=== PATIENT | female | born 1990 | race African-American/Black ===

== ENCOUNTER 2016-10-30 11:30 | Emergency (ER) | payer MEDICAID ==
[~2016-10-30] VITALS: Ht 170.2 cm; Wt 60.0 kg
[~2016-10-30 11:30] MED LIST: KEPP250 PO; LAM25 PO; PHEN30TA42 PO
[2016-10-30 13:12] LABS: BASOPHILS % 0.4 % (0.0-2.0); EOSINOPHILS % 0.9 % (0.0-5.0); HEMATOCRIT. 38.4 % (36.0-48.0); HEMOGLOBIN. 13.3 g/dL (12.0-16.0); LYMPHOCYTES % 36.2 % (20.0-50.0); MEAN CORPUSCULAR HEMOGLOBIN 31.6 pg (28.0-32.0); MEAN CORPUSCULAR VOLUME 91.6 fL (81.0-99.0); MEAN PLATELET VOLUME 7.3 fl (7.4-10.4); MONOCYTES % 8.3 % (2.0-8.0); NEUTROPHILS % 54.2 % (40.0-76.0); PLATELET 246 x1000/uL (130-400); RED BLOOD CELL COUNT 4.19 mill/uL (4.2-5.4); RED CELL DISTRIBUTION WIDTH 12.6 % (11.6-14.6)
[2016-10-30 13:20] LABS: INR 1.2; PROTHROMBIN TIME 12.2 sec
[2016-10-30 13:26] LABS: CARBON DIOXIDE 28 mEq/L (21-32); CHLORIDE 105 mEq/L (98-107)
[2016-10-30] MEDS ORDERED: LEVETIRACETAM 500MG TABLET PO ONE (13:45)
[2016-10-30 14:40] VITALS: BP 105/61
== END 2016-10-30 14:53 | disposition home or self-care (01) ==
LOC: ER 13:15
DX: R56.9 Unspecified convulsions (principal); N93.9 Abnormal uterine and vaginal bleeding, unspecified
CPT/HCPCS: 36415; 80053; 80165; 81025; 85025; 85610; 99284; Z7610

== ENCOUNTER 2018-02-06 12:09 | Emergency (ER) | payer MEDICAID ==
[~2018-02-06] VITALS: Ht 165.1 cm; Wt 57.0 kg
[2018-02-06 13:06] LABS: BASOPHILS % 0.5 % (0.0-2.0); EOSINOPHILS % 1.8 % (0.0-5.0); HEMATOCRIT. 38.6 % (36.0-48.0); HEMOGLOBIN. 13.1 g/dL (12.0-16.0); LYMPHOCYTES % 33.5 % (20.0-50.0); MEAN CORPUSCULAR HEMOGLOBIN 31.1 pg (28.0-32.0); MEAN CORPUSCULAR VOLUME 91.8 fL (81.0-99.0); MEAN PLATELET VOLUME 7.8 fl (7.4-10.4); MONOCYTES % 9.3 % (2.0-8.0); NEUTROPHILS % 54.9 % (40.0-76.0); PLATELET 230 x1000/uL (130-400); RED CELL DISTRIBUTION WIDTH 13.1 % (11.6-14.6)
[2018-02-06 13:13] LABS: CHLORIDE 104 mEq/L (98-107)
[2018-02-06] MEDS ORDERED: LEVETIRACETAM 1000MG/100ML 100 ML IV ONE (13:15)
[2018-02-06 13:24] LABS: PHENOBARBITAL < 2.1 ug/mL (15.0-40.0)
[2018-02-06 14:13] LABS: CLARITY URINE CLEAR (CLEAR); COLOR URINE YELLOW (YELLOW); KETONES URINE NEGATIVE (NEGATIVE); LEUKOCYTE ESTERASE URINE NEGATIVE (NEGATIVE); NITRITE URINE NEGATIVE (NEGATIVE); OCCULT BLOOD URINE NEGATIVE (NEGATIVE); PH URINE 7.5 (4.5-8.0); PROTEIN URINE NEGATIVE (NEGATIVE); SPECIFIC GRAVITY URINE 1.021 (1.005-1.030)
[2018-02-06 14:50] VITALS: BP 100/60
== END 2018-02-06 15:54 | disposition home or self-care (01) ==
LOC: ER 12:09
DX: G40.909 Epilepsy, unspecified, not intractable, without status epilepticus (principal); R42 Dizziness and giddiness; Z79.899 Other long term (current) drug therapy
CPT/HCPCS: 36415; 80053; 80184; 81003; 81025; 85025; 96365; 99284; J1953

== ENCOUNTER 2024-11-23 11:33 | Emergency (ER) | payer OTHER, MEDICAID ==
[~2024-11-23] VITALS: Ht 167.6 cm; Wt 59.0 kg
[~2024-11-23 11:33] MED LIST changes: -PHEN30TA42 PO; +PHEN30TA50 PO
[2024-11-23 11:36] VITALS: O2SAT 99
[2024-11-23 12:29] LABS: BASOPHILS % 0.9 % (0.0-2.0); EOSINOPHILS % 1.4 % (0.0-5.0); HEMATOCRIT. 40.6 % (36.0-48.0); HEMOGLOBIN. 13.3 g/dL (12.0-16.0); LYMPHOCYTES % 30.4 % (20.0-50.0); MEAN PLATELET VOLUME 7.5 fl (7.4-10.4); MONOCYTES % 7.3 % (2.0-8.0); NEUTROPHILS % 60.0 % (40.0-76.0); PLATELET 256 x1000/uL (130-400); RED BLOOD CELL COUNT 4.48 mill/uL (4.2-5.4); RED CELL DISTRIBUTION WIDTH 13.1 % (11.6-14.6)
[2024-11-23 12:36] LABS: CREATININE 0.9 mg/dL (0.6-1.0); UREA NITROGEN BLOOD 9 mg/dL (9-23)
[2024-11-23 12:38] LABS: ASPARTATE AMINOTRANSFERASE 15 IU/L (<34); BILIRUBIN DIRECT 0.4 mg/dL (<=3.0); BILIRUBIN TOTAL 1.5 mg/dL (0.1-1.0); PROTEIN TOTAL 7.4 g/dL (6.0-8.3)
[2024-11-23 13:15] LABS: HCG SCREEN NEGATIVE
[2024-11-23 13:19] LABS: CLARITY URINE CLOUDY (CLEAR); COLOR URINE BLOODY (YELLOW); PH URINE 5.0 (4.5-8.0); PROTEIN URINE 3+ (NEGATIVE); SPECIFIC GRAVITY URINE 1.025 (1.005-1.030)
[2024-11-23 13:20] LABS: GLUCOSE URINE NEGATIVE (NEGATIVE); KETONES URINE 1+ (NEGATIVE); LEUKOCYTE ESTERASE URINE 2+ (NEGATIVE); NITRITE URINE POSITIVE (NEGATIVE); OCCULT BLOOD URINE 3+ (NEGATIVE); UROBILINOGEN URINE 4.0 E.U./dL (0.2-1.0)
[2024-11-23 13:39] LABS: RBC URINE TNTC /hpf (0-2)
[2024-11-23 13:43] LABS: SQUAMOUS EPITHELIAL CELL URINE 2+ /lpf (RARE/1+)
[2024-11-23 13:44] LABS: WBC URINE 50-100 /hpf (0-2)
[2024-11-23 13:45] LABS: BACTERIA URINE 4+
[2024-11-23] MEDS: ONDANSETRON 4MG ODT PO ONE (14:03)
[2024-11-23] MEDS: KETOROLAC 15MG/ML VIAL IM ONE (14:04)
[2024-11-23 14:23] VITALS: BP 109/69; PULSE 67; RESP 20; TEMP 36.9; O2SAT 100
[2024-11-23] MEDS ORDERED: ONDA-239 PO (14:27)
[2024-11-23] MEDS ORDERED: NITR100C MT (14:27)
[2024-11-23] MEDS ORDERED: PSYL0.4C2 MT (14:31)
== END 2024-11-23 14:46 | disposition home or self-care (01) ==
LOC: ER 11:33
DX: D25.9 Leiomyoma of uterus, unspecified (principal); K59.00 Constipation, unspecified; Z79.899 Other long term (current) drug therapy; Z86.59 Personal history of other mental and behavioral disorders
CPT/HCPCS: 99285; 74176; 76830; 76856; 80076; 80048; 81003; 84703; 85025; 87086; 36415; 96372; J1885; Q0162

== ENCOUNTER 2025-01-28 13:27 | Emergency (ER) | payer MEDICAID, OTHER ==
[~2025-01-28] VITALS: Ht 170.2 cm; Wt 64.0 kg
[~2025-01-28 13:27] MED LIST changes: +NITR100C MT; +ONDA-239 PO; +PSYL0.4C2 MT
[2025-01-28 13:43] VITALS: O2SAT 100
[2025-01-28 14:25] LABS: BASOPHILS % 0.6 % (0.0-2.0); EOSINOPHILS % 0.8 % (0.0-5.0); HEMATOCRIT. 40.8 % (36.0-48.0); HEMOGLOBIN. 13.5 g/dL (12.0-16.0); LYMPHOCYTES % 18.3 % (20.0-50.0); MEAN PLATELET VOLUME 7.6 fl (7.4-10.4); MONOCYTES % 6.0 % (2.0-8.0); NEUTROPHILS % 74.3 % (40.0-76.0); PLATELET 272 x1000/uL (130-400); RED BLOOD CELL COUNT 4.47 mill/uL (4.2-5.4); RED CELL DISTRIBUTION WIDTH 13.3 % (11.6-14.6)
[2025-01-28 14:40] LABS: CREATININE 0.9 mg/dL (0.6-1.0); UREA NITROGEN BLOOD 5 mg/dL (9-23)
[2025-01-28 14:42] LABS: ASPARTATE AMINOTRANSFERASE 14 IU/L (<34); BILIRUBIN DIRECT 0.3 mg/dL (<=3.0); BILIRUBIN TOTAL 1.1 mg/dL (0.1-1.0); PROTEIN TOTAL 7.9 g/dL (6.0-8.3)
[2025-01-28] MEDS: KETOROLAC 30MG/ML VIAL IM ONE (15:33)
[2025-01-28] MEDS: ACETAMINOPHEN 325MG TABLET PO ONE (15:33)
[2025-01-28] MEDS: ONDANSETRON HCL 4MG TABLET PO ONE (15:43)
[2025-01-28] MEDS: IBUPROFEN 400MG TABLET PO ONE (15:43)
[2025-01-28 16:01] LABS: HCG SCREEN NEGATIVE
[2025-01-28 16:10] LABS: CLARITY URINE CLEAR (CLEAR); COLOR URINE YELLOW (YELLOW); GLUCOSE URINE NEGATIVE (NEGATIVE); KETONES URINE 1+ (NEGATIVE); LEUKOCYTE ESTERASE URINE 1+ (NEGATIVE); NITRITE URINE NEGATIVE (NEGATIVE); OCCULT BLOOD URINE 3+ (NEGATIVE); PH URINE 6.0 (4.5-8.0); PROTEIN URINE TRACE (NEGATIVE); SPECIFIC GRAVITY URINE 1.018 (1.005-1.030); UROBILINOGEN URINE 1.0 E.U./dL (0.2-1.0)
[2025-01-28 17:18] LABS: RBC URINE TNTC /hpf (0-2); WBC URINE TNTC /hpf (0-2)
[2025-01-28 17:19] LABS: BACTERIA URINE 2+; SQUAMOUS EPITHELIAL CELL URINE FEW /lpf (RARE/1+)
[2025-01-28] MEDS ORDERED: SULF1TAB48 MT (17:50)
[2025-01-28] MEDS ORDERED: IBUP-2028 MT (17:50)
[2025-01-28 17:56] VITALS: BP 110/61; PULSE 69; RESP 13; TEMP 37; O2SAT 100
== END 2025-01-28 18:17 | disposition home or self-care (01) ==
LOC: ER 13:27
DX: N94.6 Dysmenorrhea, unspecified (principal); N39.0 Urinary tract infection, site not specified; Z79.899 Other long term (current) drug therapy; Z90.710 Acquired absence of both cervix and uterus
CPT/HCPCS: 80076; 80048; 81003; 81025; 84703; 85025; 87086; 36415; 76856; 99284; Q0162; J1885; Z7610; A4606